=== PATIENT | male | born 1980 | race Two or more races ===

== ENCOUNTER 2022-10-29 15:20 | Emergency (ER) | payer SELFPAY ==
[~2022-10-29] VITALS: Ht 175.3 cm; Wt 89.7 kg
[~2022-10-29 15:20] MED LIST: NORPTMEDS CO
[2022-10-29 15:36] VITALS: BP 131/80
[2022-10-29] MEDS ORDERED: IBUP800T27 PO (17:04)
[2022-10-29] MEDS ORDERED: CEPH-510 PO (17:04)
[2022-11-02 09:13] LABS: Hepatitis B Surface Antibody Negative (Negative)
== END 2022-10-29 17:10 | disposition home or self-care (01) ==
LOC: ER 15:20
DX: S46.912A Strain of unspecified muscle, fascia and tendon at shoulder and upper arm level, left arm, initial encounter (principal); S23.41XA Sprain of ribs, initial encounter; S20.412A Abrasion of left back wall of thorax, initial encounter; Z20.5 Contact with and (suspected) exposure to viral hepatitis; Z88.6 Allergy status to analgesic agent; W17.2XXA Fall into hole, initial encounter; Y93.01 Activity, walking, marching and hiking; Y92.89 Other specified places as the place of occurrence of the external cause; Y99.8 Other external cause status
CPT/HCPCS: 36415; 71101; 73030; 86703; 86706; 86803; 87340